=== PATIENT | female | born 1985 | race Caucasian/White ===

== ENCOUNTER 2020-07-19 00:03 | Outpatient (CLI) | payer OTHER ==
[~2020-07-19 00:03] MED LIST: IBUPROFEN600 MG PO; KEFLEX500 MG PO; LORTAB 5-325 M1 EACH PO; POTASSIUM99 M1 PO; PRENATAL VITAM1 EAC6 PO
== END 2020-07-19 01:08 | disposition left against medical advice (07) ==
LOC: GENOP 00:03 → EDSTATUS 08:14
DX: O42.913 Preterm premature rupture of membranes, unspecified as to length of time between rupture and onset of labor, third trimester (principal); Z3A.32 32 weeks gestation of pregnancy
CPT/HCPCS: 59025; 81001; 83518